=== PATIENT | male | born 1970 | race Caucasian/White ===

== ENCOUNTER 2019-04-05 17:48 | Day surgery (SDC) | payer BC ==
[~2019-04-05] VITALS: Ht 177.8 cm; Wt 80.6 kg
[2019-04-05] MEDS ORDERED: ATOR1TAB19 PO (18:02)
[2019-04-05] MEDS ORDERED: ADDE20CA3 PO ×2 (18:02→22:10)
[2019-04-05 18:27] LABS: BASO # 0.1 10^3/uL (0.0-0.2); BASO % 0.5 % (0.0-1.0); EOS # 0.1 10^3/uL (0.0-0.50); EOS % 0.9 % (0.0-3.0); HEMATOCRIT 46.7 % (42.0-52.0); HEMOGLOBIN 15.8 g/dl (13.5-17.5); LYMPH # 2.5 10^3/uL (1.5-4.5); LYMPH % 21.7 % (24.0-44.0); MEAN CORPUSCULAR HEMOGLOBIN 30.9 pg (27.0-33.0); MEAN CORPUSCULAR HGB CONC 33.8 g/dl (32.0-36.5); MEAN CORPUSCULAR VOLUME 91.4 fl (80.0-96.0); MONO # 0.7 10^3/uL (0.0-0.8); MONO % 5.9 % (0.0-5.0); NEUTROPHILS # 8.1 10^3/uL (1.8-7.7); NEUTROPHILS % 70.5 % (36.0-66.0); PLATELET COUNT, AUTOMATED 290 10^3/uL (150-450); RED BLOOD COUNT 5.11 10^6/uL (4.30-6.10); WHITE BLOOD COUNT 11.5 10^3/uL (4.0-10.0)
[2019-04-05 19:00] LABS: ALBUMIN 3.9 GM/DL (3.2-5.2); ALT/SGPT 33 U/L (12-78); BILIRUBIN,DIRECT 0.2 MG/DL (0.0-0.2); BILIRUBIN,TOTAL 0.6 MG/DL (0.2-1.0); BLOOD UREA NITROGEN 11 MG/DL (7-18); CALCIUM LEVEL 8.9 MG/DL (8.5-10.1); CARBON DIOXIDE LEVEL 34 MEQ/L (21-32); CHLORIDE LEVEL 101 MEQ/L (98-107); CREATININE FOR GFR 1.11 MG/DL (0.70-1.30); GLOMERULAR FILTRATION RATE > 60.0 (>60); GLUCOSE, FASTING 90 MG/DL (70-100); LIPASE 145 U/L (73-393); POTASSIUM SERUM 3.6 MEQ/L (3.5-5.1); SODIUM LEVEL 140 MEQ/L (136-145); TOTAL PROTEIN 7.4 GM/DL (6.4-8.2)
[2019-04-05] MEDS ORDERED: ISOVUE-370 76% 100ML VIAL (Q9967) As Ordered ONE (19:05)
--- NOTE | 2019-04-05 19:42 | REPVR ---
EXAM: CT Abdomen and Pelvis With Contrast EXAM DATE/TIME: 04/05/2019 7:14 PM CLINICAL HISTORY: 48 years old, male; Abdominal pain; Localized; Right lower quadrant (rlq); Additional info: Rlq pain; R/O appy TECHNIQUE: Imaging protocol: Axial computed tomography images of the abdomen and pelvis with intravenous contrast. Coronal and sagittal reformatted images were created and reviewed. Radiation optimization: All CT scans at this facility use at least one of these dose optimization techniques: automated exposure control; mA and/or kV adjustment per patient size (includes targeted exams where dose is matched to clinical indication); or iterative reconstruction. Contrast material: ISOVUE 370; Contrast volume: 100 ml; Contrast route: IV; COMPARISON: No relevant prior studies available. FINDINGS: Liver: There is a diffuse decrease in hepatic parenchymal density, consistent with fatty infiltration. Gallbladder and bile ducts: Normal. No calcified stones. No ductal dilation. Pancreas: Normal. No ductal dilation. Spleen: Normal. No splenomegaly. Adrenals: There is bilateral adrenal hyperplasia. Kidneys and ureters: Normal. No hydronephrosis. Stomach and bowel: There is modest increased feces throughout the colon which maybe consistent with constipation. Appendix: The appendix demonstrates diffuse distention measuring 16 mm maximally surrounded by marked periappendiceal inflammation or, consistent with acute appendicitis. No abscess or free fluid demonstrated. Intraperitoneal space: See Appendix Finding. Vasculature: Normal. No abdominal aortic aneurysm. Lymph nodes: Normal. No enlarged lymph nodes. Bladder: Unremarkable as visualized. Reproductive: The prostate gland demonstrates mild hyperplasia. Bones/joints: Mild central spinal stenosis at L3-4 and moderate central spinal stenosis at L4-5. Soft tissues: Unremarkable. IMPRESSION: 1. Acute appendicitis. 2. Mild prostatic hyperplasia. 3. There is a diffuse decrease in hepatic parenchymal density, consistent with fatty infiltration. 4. There is bilateral adrenal hyperplasia. 5. There is modest increased feces throughout the colon which maybe consistent with constipation. A critical call has been made to speak with the ordering physician/practitioner. This report will be amended once consultation has occurred. Electronically signed by: Carl Malone On 04/05/2019 19:42:10 PM
[2019-04-05] MEDS ORDERED: PIPERACILLIN/TAZOBACTAM SOD 3.375 GM in D5W MINI-BAG PLUS 50 ML IV ONE (20:15)
[2019-04-05] MEDS ORDERED: KETOROLAC 30 MG/ML VIAL (J1885) IV PRN (20:15)
[2019-04-05] MEDS ORDERED: MORPHINE 4 MG/ML 1ML VIAL/SYRINGE (J2270) IV PRN (20:15)
[2019-04-05] MEDS: LR 1,000 ML IV SCH (21:36)
[2019-04-05] MEDS ORDERED: C 50TAB PO (22:10)
[2019-04-05] MEDS ORDERED: VITMTA PO (22:10)
[2019-04-05] MEDS ORDERED: PROAAER10 INH (22:10)
[2019-04-05] MEDS ORDERED: ATOR1TAB21 PO (22:10)
[2019-04-05] MEDS ORDERED: VITA500038 PO (22:10)
[2019-04-05] MEDS ORDERED: VITATAB73 PO (22:10)
[2019-04-05] MEDS ORDERED: LIDOCAINE 2% INJ 100 MG/5 ML SDV (FOR ANES.) As Ordered ONE (22:14)
[2019-04-05] MEDS ORDERED: propofoL 200 MG/20 ML VIAL As Ordered ONE (22:14)
[2019-04-05] MEDS ORDERED: ROCURONIUM BROMIDE 50 MG/5 ML VIAL As Ordered ONE (22:14)
[2019-04-05] MEDS ORDERED: fentaNYL 250 MCG/5 ML INJECTION (J3010) As Ordered ONE (22:15)
[2019-04-05] MEDS ORDERED: ONDANSETRON 4MG/2ML VIAL (J2405) As Ordered ONE (22:15)
[2019-04-05] MEDS ORDERED: dexameTHASONE 4 MG/ML 1ML VIAL (J1100) As Ordered ONE (22:15)
[2019-04-05] MEDS ORDERED: KETOROLAC 60 MG/2 ML VIAL (J1885) As Ordered ONE (22:15)
[2019-04-05] MEDS ORDERED: MIDAZOLAM INJ 2 MG/2 ML VIAL (J2250) As Ordered ONE (22:15)
[2019-04-05] MEDS ORDERED: SUGAMMADEX SODIUM 500 MG/5 ML VIAL (BRIDION) As Ordered ONE (22:21)
[2019-04-05] MEDS ORDERED: BUPIVACAINE HCL 0.25% 30 ML VIAL As Ordered ONE (23:11)
[2019-04-06] VITALS (8 sets, daily range): BP systolic 104–123; BP diastolic 56–70
[2019-04-06] MEDS ORDERED: LR 1,000 ML IV SCH (00:30)
[2019-04-06] MEDS ORDERED: ONDANSETRON 4MG/2ML VIAL (J2405) IV PRN (00:30)
[2019-04-06] MEDS ORDERED: HYDROMORPHONE HCL 0.5 MG/ 0.5 ML SYRINGE (J1170 PER 1) IV PRN (00:30)
[2019-04-06] MEDS ORDERED: PERCOCET 5MG/325MG TAB PO PRN (00:30)
[2019-04-06] MEDS ORDERED: fentaNYL 100 MCG/2 ML INJECTION (J3010) IV PRN (00:30)
[2019-04-06] MEDS ORDERED: NORCO, ANEXSIA 5/325MG TABLET (HYDROcodone/ACETAMINOPHEN) PO PRN (00:45)
[2019-04-06] MEDS ORDERED: IBUPROFEN 600 MG TAB PO PRN (00:45)
[2019-04-06] MEDS ORDERED: ACETAMINOPHEN TAB 650MG DOSE (2X325MG) PO PRN (00:45)
[2019-04-06] MEDS: LR 1,000 ML IV SCH (05:26)
--- NOTE | 2019-04-06 17:56 | IPN ---
DATE: 04/06/2019 HISTORY: The patient had a laparoscopic appendectomy, ending shortly after midnight this morning. He has been tolerating some clear liquids. He has been out of bed to the bathroom to void several times. He has some soreness, particularly when he moves, but this is not significant. He denies any nausea or vomiting. VITAL SIGNS: He has been afebrile overnight, and his pulse is in the 70s to 80s with a normal blood pressure. Intake and output show that he has had 400 of urine output this morning. PHYSICAL EXAMINATION: The patient is alert and oriented. Heart exam shows a regular rhythm, and the lungs are clear. The abdomen is not distended. He has active bowel sounds. The abdomen is soft without any undue tenderness. IMPRESSION: The patient is doing very well now, approximately 8-9 hours postoperative from his laparoscopic appendectomy. PLAN: The patient was counseled that he can be discharged today when he is feeling up to it and tolerating liquids well. I will advance him to a regular diet. The intravenous (IV) fluid will be held. He was counseled that he can shower 24 hours after the surgery. He is camping in [place] and had asked about swimming, and I informed him that after 2-3 days and allowing his wounds to heal, he should be able to go in the hope without any significant concern. He should let his Steri-Strips come off on their own. He can take a diet as tolerated. He was advised against any strenuous physical activity for about 2 weeks. We discussed pain medication, and he indicates that he will get by with Tylenol or nonsteroidal anti-inflammatories. He can call me if he needs a prescription, but since he is in [place] I advised him that he can buy some version of Tylenol with Codeine [id number] there. LINH
--- NOTE | 2019-04-06 20:28 | ECGEPIP ---
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
--- NOTE | 2019-04-06 23:27 | RO ---
DATE OF PROCEDURE: 04/05/2019 The procedure started on 04/05/2019 and ended on 04/06/2019. PREOPERATIVE DIAGNOSIS: Acute appendicitis. POSTOPERATIVE DIAGNOSIS: Acute appendicitis. PROCEDURE PERFORMED: Laparoscopic appendectomy. SURGEON: Dr. Yusef Daniels ROLLER VARNISHER: Song Watson OMS-3 ANESTHESIA: General. INDICATIONS FOR PROCEDURE: The patient presented to the emergency department with approximately 3 days of a feeling of fullness and bloating. He had some nausea. He developed some tenderness and mild soreness in the right lower quadrant. In the emergency department, he underwent evaluation with a CT scan that showed an inflamed and dilated appendix. He is now for a laparoscopic appendectomy. DESCRIPTION OF PROCEDURE: The patient was brought to the operating room and placed supine on the operating table. The patient's abdomen was prepped and draped in a sterile fashion. 0.25% Marcaine was infiltrated at the trocar sites as needed. A short supraumbilical midline incision was made and deepened through the subcutaneous tissues. The fascia was opened along the midline and the peritoneum was opened bluntly. A Mady cannula was inserted, and the abdomen was inflated with carbon dioxide gas. Initial examination showed a normal appearing liver and gallbladder. Visualized loops of the small and large bowel were normal. There was no free fluid or inflammatory exudate identified. The patient was tilted to a Trendelenburg position and rolled to the left. A 5 mm trocar was placed low in the midline and a second 5 mm trocar was placed in the left lower quadrant. Graspers were inserted. The cecum was readily identified. The small bowel was elevated away from the right lower quadrant and up out of the pelvis. The terminal ileum was rotated medially and lying posterior to the terminal ileum, the markedly inflamed appendix was identified. This was fused to the retroperitoneum by dense inflammatory changes and what may have been some chronic scarring as well. Some of the inferior attachments of the cecum were divided to better expose this area. By a combination of blunt and cautery dissection, the appendix was gradually mobilized away from the retroperitoneum. There was no sign of perforation or gangrene, but the appendix was markedly thickened and fibrotic and inflamed. This was dissected away, and the junction of the appendix with the cecum was identified. The terminal ileum was traced to its juncture with the appendix. The appendiceal artery was transected in the course of dissection, and this was controlled with the cautery. The appendix was then elevated and an [place] stapler with a green load was passed through the supraumbilical port, and the appendix was stapled at its junction with the cecum. A small edge of the cecum was likely taken with the specimen. The appendix was placed in an Endopouch. A single bleeding point along the staple line was cauterized. The right lower quadrant was irrigated, inspected and there was no evidence of any bleeding or residual inflammatory debris. The patient was returned to a flat position. The abdomen was deflated and the trocars were removed. The appendix was recovered through the Mady site and was sent for permanent pathology. The fascia at the Mady site was closed with interrupted simple sutures of #2-0 Vicryl. The skin incisions were all closed with buried #5-0 Vicryl and Steri-Strips. The patient tolerated the procedure well without apparent complication. He was awakened in the operating room, extubated and moved to the recovery room in stable condition.
== END 2019-04-06 12:00 | disposition home or self-care (01) ==
LOC: M ED 17:48 → M SDC 20:14 → M PED 04-06 01:26 → M SDC 04-06 12:00
PROVIDERS: ATTEND Surgery
DX: K35.890 Other acute appendicitis without perforation or gangrene (principal)
CPT/HCPCS: 44970; 74177; 80048; 80076; 81001; 83690; 85025; 88304; 93005; 96365; 96375; 99284; J1100; J1885; J2250; J2405; J2543; J3010; Q9967